=== PATIENT | female | born 1950 | race Hispanic/Latino ===

== ENCOUNTER 2017-08-11 11:35 | Outpatient (CLI) | payer MEDICARE ==
--- NOTE | 2017-08-12 10:02 | Mammography Report ---
BILATERAL DIGITAL SCREENING MAMMOGRAM with CAD: 08/11/17 11:35:00 CLINICAL: Routine screening. COMPARISON: 10/05/15 and 07/08/13 FINDINGS: There are bilateral scattered areas of fibroglandular density.No mass, architectural distortion or suspicious calcifications. IMPRESSION: No mammographic evidence of malignancy. BI-RADS CATEGORY: 1 -- Negative RECOMMENDATION: Routine mammographic screening in one year. COMMENT: Patient follow-up letters are generated by our [employer] application.
== END 2017-08-11 11:36 | disposition home or self-care (01) ==
LOC: SPVWC 11:35
PROVIDERS: ATTEND Surgery Plastic and Reconstructive Surgery
DX: Z12.31 Encounter for screening mammogram for malignant neoplasm of breast (principal)
CPT/HCPCS: 77067; G0202

== ENCOUNTER 2020-12-17 14:28 | Outpatient (CLI) | payer MEDICARE ==
--- NOTE | 2020-12-17 15:24 | Mammography Report ---
DEXA BONE DENSITY SCAN INDICATION / CLINICAL INFORMATION: MENOPAUSE Z78.0. 70 years Female COMPARISON: None available. LUMBAR SPINE, L2-L4: - Bone mineral density (BMD) = 0.882 g/cm2. - T-score = -1.8 - Z-score = 0.3 Change (%) since most recent prior (if available): None available. LEFT HIP, TOTAL : - Bone mineral density (BMD) = 0.747 g/cm2. - T-score = -1.6 - Z-score = -0.1 Change (%) since most recent prior (if available): None available. IMPRESSION: 1. WHO Classification: Osteopenia. Fracture Risk: Increased. BMD Reporting Guidelines (ISCD, 2015) BMD Reporting in Postmenopausal Women and in Men Age 50 and Older * T-scores are preferred. * The WHO densitometric classification is applicable. BMD Reporting in Females Prior to Menopause and in Males Younger Than Age 50 * Z-scores, not T-scores, are preferred. This is particularly important in children. * A Z-score of -2.0 or lower is defined as below the expected range for age, and a Z-score above -2. 0 is within the expected range for age. * Osteoporosis cannot be diagnosed in men under age 50 on the basis of BMD alone. * The WHO diagnostic criteria may be applied to women in the menopausal transition. http://www.iscd.org/official-positions/8894-mbcn-jgcrkuts-positions-adult/ Signer Name: Rai Garcia MD Signed: 12/17/2020 3:19 PM Workstation Name: [id number]
--- NOTE | 2020-12-17 17:35 | Mammography Report ---
DIGITAL SCREENING MAMMOGRAM WITH CAD, 12/17/2020 CLINICAL INFORMATION / INDICATION: Routine screening mammography. TECHNIQUE: Digital bilateral 2D mammography was obtained in the craniocaudal and mediolateral obliqu e projections. This examination was interpreted with the benefit of Computer-Aided Detection analysis . COMPARISON: 07/08/2013 FINDINGS: Breast Density: There are scattered areas of fibroglandular density. No dominant mass, suspicious calcifications, or architectural distortion in either breast. Postsurgical scar, left breast. Mild bilateral nodularity is stable. Overall, no interval change. IMPRESSION: No mammographic evidence of malignancy. Follow up recommendation: Routine yearly BI-RADS Category 2: Benign. A "normal" or negative report should not discourage follow up or biopsy of a clinically significant f inding. A written summary of these findings will be mailed to the patient. The patient will be entered into a mammography reporting system which will generate a reminder letter for the patient's next appointmen t at the appropriate interval. The [employer] recommends yearly mammograms starting at age 40 and continuing as l june as a woman is in good health. Breast MRI is recommended for women with an approximate 20-25% or greater lifetime risk of breast cancer, including women with a strong family history of breast or ova shahab cancer or who have been treated for Hodgkin's disease. Signer Name: Cyndy Rutledge MD Signed: 12/17/2020 5:31 PM Workstation Name: [id number]
== END 2020-12-17 14:29 | disposition home or self-care (01) ==
LOC: SPVWC 14:28
PROVIDERS: ATTEND Family Medicine
DX: Z12.31 Encounter for screening mammogram for malignant neoplasm of breast (principal); Z13.820 Encounter for screening for osteoporosis; M85.88 Other specified disorders of bone density and structure, other site; N64.89 Other specified disorders of breast; Z78.0 Asymptomatic menopausal state
CPT/HCPCS: 77067; 77080